=== PATIENT | female | born 1950 | race Caucasian/White ===

== ENCOUNTER 2016-03-15 08:24 | Emergency (ER) | payer MEDICARE, OTHER ==
[2016-03-15] MEDS ORDERED: HYDROCORTISONE SOD SUCCINATE 50 MG/ML VIAL IV ONE (09:25)
[2016-03-15] MEDS ORDERED: KETOROLAC TROMETHAMINE 30 MG/ML VIAL IV ONE (09:25)
[2016-03-15] MEDS ORDERED: NORMAL SALINE 1,000 ML in NORMAL SALINE 1,000 ML IV ONE (09:25)
[2016-03-15] MEDS ORDERED: ONDANSETRON HCL/PF 2 MG/ML VIAL IV ONE (09:25)
--- NOTE | 2016-03-15 09:28 | ERNOTE ---
Medical Problem HPI - General Chief Complaint: Nausea/Vomiting Time Seen by Provider: 03/15/16 09:23 Source: patient Exam Limitations: no limitations - Immun/Allergies/Home Medications Immunizations: IMMUNIZATION HX Immunizations Up to Date Yes History of Influenza Vaccine No Allergies/Adverse Reactions: Allergies Tetracyclines Allergy (Verified 03/15/16 08:40) Home Medications: HOME MEDICATIONS Aspirin 81 mg PO DAILY 03/15/16 [Last Taken Unknown] Atorvastatin Calcium [Lipitor] 20 mg PO DAILY 03/15/16 [Last Taken Unknown] Hydrochlorothiazide [Hydrodiuril] 25 mg PO DAILY 03/15/16 [Last Taken Unknown] Metoprolol Tartrate [Lopressor] 100 mg PO BID 03/15/16 [Last Taken Unknown] Naproxen [Naprosyn] 500 mg PO BID #60 tablet 03/15/16 [Last Taken Unknown] Ondansetron [Zofran Odt] 4 mg PO Q6H PRN #20 tab 03/15/16 [Last Taken Unknown] Potassium Chloride [Klor-Con 10] 10 meq PO DAILY 03/15/16 [Last Taken Unknown] - History of Present History Narrative: Pt has a known flu and has been experiencing nausea and vomiting with continuing body aches. Pt complains of a fairly severe sore throat. Timing: intermittent Severity: moderate Review of Systems - Review of Systems Constitutional: Present: See HPI, recent illness EYE: Present: no symptoms reported ENT: Present: sore throat Respiratory: Present: no symptoms reported Cardiology: Present: no symptoms reported Gastrointestinal/Abdominal: Present: nausea, vomiting Genitourinary: Present: no symptoms reported Musculoskeletal: Present: no symptoms reported Skin: Present: no symptoms reported Neurological: Present: no symptoms reported Endocrine: Present: no symptoms reported Hematologic/Lymphatic: Present: no symptoms reported Psych: Present: no symptoms reported - Patient's Past Medical History Patient History - Medical: No pertinent hx, Other - recent diagnosis of influenza Patient History - Cancer: No Hx of Cancer Patient History - Surgical Procedures: - Social History Smoking Status: Never smoker Have you smoked in the past 12 months: No Physical Exam - Physical Exam General Appearance: Present: wd/wn, alert, moderate distress Eye Exam: Normal inspection: bilateral, PERRL: bilateral Ears, Nose, Throat: Present: hearing grossly normal, pharyngeal erythema, dry mucous membranes Neck: Present: normal inspection, nontender Respiratory: Present: no respiratory distress, normal breath sounds, no accessory muscle use, chest nontender, lungs clear Cardiovascular/Chest: Present: regular rate, rhythm, no murmur, normal peripheral pulses Gastrointestinal/Abdominal: Present: normal bowel sounds, nontender, nondistended, soft, no organomegaly Rectal Exam: Present: deferred Back Exam: Present: normal inspection, normal range of motion Extremity Exam: Present: normal inspection, non-tender, no edema, normal range of motion Neurological Exam: Present: alert, oriented, normal mood/affect Skin Exam: Present: normal color, warm/dry Lymphatic Exam: Present: no adenopathy ED Progress - Results and Orders Patient's Lab Results:: I have reviewed the patient's lab results. - Vital Signs Patient's Vital Signs:: I have reviewed the patient's vital signs. Vital Signs: Vital Signs 03/15/16 08:38 Temperature 36.4 C L Pulse Rate 90 Respiratory 14 Rate Blood Pressure 149/88 O2 Sat by Pulse 96 Oximetry - Progress/Reassessment Chief Complaint: Nausea/Vomiting Progress:: Improved - Transfer of Care Expected Disposition: Discharge Plan - Plan Plan: Pt to receive Zofran for the nausea and vomiting and Naprosyn for the body aching and sore throat. Departure - Departure Clinical Impression: Influenza Disposition: Home self-care Condition: Good Instructions: Influenza, Adult, [id number] Referrals: Jordan Roberts MD [Primary Care Provider] - Prescriptions: Naproxen [Naprosyn] 500 mg PO BID #60 tablet Ondansetron [Zofran Odt] 4 mg PO Q6H PRN #20 tab PRN Reason: Nausea And Vomiting
[2016-03-15] MEDS ORDERED: ONDANSETRON HCL/PF 2 MG/ML VIAL ONE (10:12)
[2016-03-15] MEDS ORDERED: KETOROLAC TROMETHAMINE 30 MG/ML VIAL ONE (10:13)
[2016-03-15] MEDS ORDERED: HYDROCORTISONE SOD SUCCINATE 50 MG/ML VIAL ONE (10:13)
[2016-03-15 10:23] VITALS: BP 134/54
== END 2016-03-15 11:45 | disposition home or self-care (01) ==
LOC: ER 08:24
DX: J11.1 Influenza due to unidentified influenza virus with other respiratory manifestations (principal)